=== PATIENT | female | born 1990 | race Caucasian/White ===

== ENCOUNTER 2017-07-06 11:26 | Emergency (ER) | payer OTHER ==
[2017-07-06 11:37] VITALS: TEMP 97.9
[2017-07-06] MEDS ORDERED: SODIUM CHLORIDE 0.9% 1,000 ML IV STA ×2 (12:05)
[2017-07-06 12:48] LABS: Basophils % (A) 1 %; CH 30.2; CHCM 33.3; Eosinophils # (A) 0.1 k/uL (0-0.7); Eosinophils % (A) 2 %; HCT 43.4 % (34.0-46.0); HDW 2.23; HGB 14.1 gm/dL (11.4-16.0); Luc # (Auto) 0.15; Luc % (Auto) 2; Lymphocytes # (A) 1.6 k/uL (1.0-4.8); Lymphocytes % (A) 19 %; MCH 29.6 pg (25.0-35.0); MCHC 32.6 g/dL (31.0-37.0); MCV 90.9 fL (80.0-100.0); Mean Platelet Volume 7.7; Monocytes # (A) 0.6 k/uL (0-1.0); Monocytes % (A) 7 %; Neutrophils # (A) 6.2 k/uL (1.3-7.7); Neutrophils % (A) 71 %; RBC 4.77 m/uL (3.80-5.40); RDW 13.7 % (11.5-15.5); WBC 8.8 k/uL (3.8-10.6); WBC (Perox) 9.17
[2017-07-06 12:54] LABS: Appearance,Urine Clear (Clear); Bacteria,Urine Rare /hpf; Bilirubin,Urine Negative (Negative); Glucose,Urine (UA) Negative (Negative); Ketones,Urine 1+ (Negative); Leukocyte Esterase,Urine Negative (Negative); Mucus,Urine Few /hpf; Nitrite,Urine Negative (Negative); Particle Count 4375; Protein,Urine Trace (Negative); RBC,Urine 5 /hpf (0-5); Specific Gravity,Urine 1.016 (1.001-1.035); Squamous Epithelial Cell,Urine <1 /hpf (0-4); UA Billing (MACRO vs. MICRO) MICRO; Urobilinogen,Urine <2.0 mg/dL (<2.0); WBC,Urine 2 /hpf (0-5)
[2017-07-06 13:03] LABS: ALT 28 U/L (9-52); AST 19 U/L (14-36); Alkaline Phosphatase 59 U/L (38-126); Amylase 48 U/L (30-110); Anion Gap 12 mmol/L; Blood Urea Nitrogen 5 mg/dL (7-17); Calcium 10.3 mg/dL (8.4-10.2); Carbon Dioxide 22 mmol/L (22-30); Chloride 104 mmol/L (98-107); Glucose 96 mg/dL (74-99); Non-African American GFR(MDRD) >60 (>60 ml/min/1.73 sqM); Potassium 4.3 mmol/L (3.5-5.1); Sodium 138 mmol/L (137-145); Total Bilirubin 0.4 mg/dL (0.2-1.3); Total Protein 7.6 g/dL (6.3-8.2)
[2017-07-06 13:04] LABS: Prothrombin Time 9.7 sec (9.0-12.0)
--- NOTE | 2017-07-06 13:12 | XR ---
EXAMINATION TYPE: XR KUB DATE OF EXAM: 07/06/2017 CLINICAL DATA: 26 year-old female with abdominal pain, [facility] COMPARISON: 12/10/2015 FINDINGS: Lung bases are clear. No evidence for free intraperitoneal air. No dilated small bowel or air-fluid levels. Scattered air seen throughout the colon extending distall y into the rectum. Mild stool in the right hemicolon. No suspicious calcifications identified. IMPRESSION: No evidence of bowel obstruction or free intraperitoneal air.
[2017-07-06 13:16] LABS: Partial Thromboplastin Time 20.6 sec (22.0-30.0)
[2017-07-06] MEDS ORDERED: KETOROLAC 30 MG/ML 1 ML VIAL IVP STA (13:24)
[2017-07-06] MEDS ORDERED: ONDANSETRON 4 MG/2 ML VIAL IVP STA (13:24)
[2017-07-06] MEDS ORDERED: HYDROmorphone 1 MG/ML 1 ML SYRINGE IVP STA (13:24)
--- NOTE | 2017-07-06 13:25 | ED ---
Abdominal Pain HPI - General Chief Complaint: Abdominal Pain Stated Complaint: Abdominal pain Time Seen by Provider: 07/06/17 11:52 Source: patient, RN notes reviewed, old records reviewed Mode of arrival: ambulatory Limitations: no limitations - History of Present Illness Initial Comments: This is a 26-year-old female presents emergency Department chief plan a sudden onset of epigastric abdominal pain for approximately one day. Patient reports that she had a couple episodes of nausea and vomiting as well. One episode of diarrhea earlier today. She denies any fever or chills, chest pain or shortness breath. Denies any surgical history. While arriving to ED, she reports pain is somewhat letting up. She denies fever or chills. Denies chance of , or vaginal discharge - Related Data Home Medications Medication Instructions Recorded Confirmed ALPRAZolam [Xanax] 0.25 mg PO BID PRN 07/06/17 07/06/17 Apri 1 tab PO DAILY 07/06/17 07/06/17 buPROPion HCL [Wellbutrin Sr] 300 mg PO DAILY 07/06/17 07/06/17 Previous Rx's Medication Instructions Recorded Acetaminophen-Codeine 300-30mg 1 tab PO Q4H PRN #15 tablet 07/06/17 [Tylenol #3] Ondansetron Odt [Zofran Odt] 4 mg PO Q8HR PRN #12 tab 07/06/17 Allergies Allergy/AdvReac Type Severity Reaction Status Date / Time egg Allergy Unknown Verified 07/06/17 12:02 gluten Allergy Unknown Verified 07/06/17 12:02 levothyroxine sodium Allergy Anaphylaxis Verified 07/06/17 12:02 [From Synthroid] potato Allergy Unknown Verified 07/06/17 12:02 tomato Allergy Unknown Verified 07/06/17 12:02 wheat Allergy Unknown Verified 07/06/17 12:02 yeast, dried Allergy Unknown Verified 07/06/17 12:02 Review of Systems ROS Statement: Those systems with pertinent positive or pertinent negative responses have been documented in the HPI. ROS Other: All systems not noted in ROS Statement are negative. Past Medical History Past Medical History: No Reported History History of Any Multi-Drug Resistant Organisms: None Reported Past Surgical History: Orthopedic Surgery Past Psychological History: No Psychological Hx Reported Smoking Status: Never smoker Past Alcohol Use History: Occasional Past Drug Use History: None Reported General Exam - General Exam Comments Initial Comments: This is a 26 year old female, no distress Limitations: no limitations General appearance: alert, in no apparent distress Head exam: Present: atraumatic, normocephalic, normal inspection Eye exam: Present: normal appearance, PERRL, EOMI. Absent: scleral icterus, conjunctival injection, periorbital swelling ENT exam: Present: normal exam, mucous membranes moist Neck exam: Present: normal inspection. Absent: tenderness, meningismus, lymphadenopathy Respiratory exam: Present: normal lung sounds bilaterally. Absent: respiratory distress, wheezes, rales, rhonchi, stridor Cardiovascular Exam: Present: regular rate, normal rhythm, normal heart sounds. Absent: systolic murmur, diastolic murmur, rubs, gallop, clicks GI/Abdominal exam: Present: soft, tenderness (epigastri cand RUQ tendernes), normal bowel sounds. Absent: distended, guarding, rebound, rigid Extremities exam: Present: normal inspection, full ROM, normal capillary refill. Absent: tenderness, pedal edema, joint swelling, calf tenderness Back exam: Present: normal inspection Neurological exam: Present: alert, oriented X3, CN II-XII intact Psychiatric exam: Present: normal affect, normal mood Skin exam: Present: warm, dry, intact, normal color. Absent: rash Course Vital Signs 07/06/17 07/06/17 07/06/17 11:35 12:38 14:14 Temperature 97.9 F Pulse Rate 94 86 74 Respiratory 20 18 18 Rate Blood Pressure 122/70 127/62 104/65 O2 Sat by Pulse 99 97 98 Oximetry 07/06/17 15:00 Temperature Pulse Rate 73 Respiratory 16 Rate Blood Pressure 116/74 O2 Sat by Pulse 99 Oximetry Medical Decision Making - Medical Decision Making This is a 26 year old female with episode of severe epigastric RUQ pain at home , nausea. She reports it is somewhat subsiding while in ED. Patient given IV fluids, labs obtained. Lab work was reviewed adn normal. Patient underwent US, shows evidence of cholelithiasis. No significant evidence of choledocholithiasis or cholecystitis. Discussed patient likely has biliary colic. Discussed proper diet, and referral to surgeon. Discharged with zofran and pain medication. Patient understands treatment plan and will comply. Return parameters discussed. - Lab Data Result diagrams: 07/06/17 12:34 07/06/17 12:34 Lab Results 07/06/17 07/06/17 07/06/17 Range/Units 12:34 12:34 12:34 WBC 8.8 (3.8-10.6) k/uL RBC 4.77 (3.80-5.40) m/uL Hgb 14.1 (11.4-16.0) gm/dL Hct 43.4 (34.0-46.0) % MCV 90.9 (80.0-100.0) fL MCH 29.6 (25.0-35.0) pg MCHC 32.6 (31.0-37.0) g/dL RDW 13.7 (11.5-15.5) % Plt Count 293 (150-450) k/uL Neutrophils % 71 % Lymphocytes % 19 % Monocytes % 7 % Eosinophils % 2 % Basophils % 1 % Neutrophils # 6.2 (1.3-7.7) k/uL Lymphocytes # 1.6 (1.0-4.8) k/uL Monocytes # 0.6 (0-1.0) k/uL Eosinophils # 0.1 (0-0.7) k/uL Basophils # 0.0 (0-0.2) k/uL PT (9.0-12.0) sec INR (<1.2) APTT (22.0-30.0) sec Sodium 138 (137-145) mmol/L Potassium 4.3 (3.5-5.1) mmol/L Chloride 104 (98-107) mmol/L Carbon Dioxide 22 (22-30) mmol/L Anion Gap 12 mmol/L BUN 5 L (7-17) mg/dL Creatinine 0.61 (0.52-1.04) mg/dL Est GFR (MDRD) Af Amer >60 (>60 ml/min/1.73 sqM) Est GFR (MDRD) Non-Af >60 (>60 ml/min/1.73 sqM) Glucose 96 (74-99) mg/dL Calcium 10.3 H (8.4-10.2) mg/dL Total Bilirubin 0.4 (0.2-1.3) mg/dL AST 19 (14-36) U/L ALT 28 (9-52) U/L Alkaline Phosphatase 59 (38-126) U/L Total Protein 7.6 (6.3-8.2) g/dL Albumin 4.5 (3.5-5.0) g/dL Amylase 48 (30-110) U/L Lipase 49 (23-300) U/L Urine Color Urine Appearance (Clear) Urine pH (5.0-8.0) Ur Specific [place] (1.001-1.035) Urine Protein (Negative) Urine Glucose (UA) (Negative) Urine Ketones (Negative) Urine Blood (Negative) Urine Nitrite (Negative) Urine Bilirubin (Negative) Urine Urobilinogen (<2.0) mg/dL Ur Leukocyte Esterase (Negative) Urine RBC (0-5) /hpf Urine WBC (0-5) /hpf Ur Squamous Epith Cells (0-4) /hpf Urine Bacteria (None) /hpf Urine Mucus (None) /hpf Urine HCG, Qual Not Detected (Not Detectd) 07/06/17 07/06/17 Range/Units 12:34 12:34 WBC (3.8-10.6) k/uL RBC (3.80-5.40) m/uL Hgb (11.4-16.0) gm/dL Hct (34.0-46.0) % MCV (80.0-100.0) fL MCH (25.0-35.0) pg MCHC (31.0-37.0) g/dL RDW (11.5-15.5) % Plt Count (150-450) k/uL Neutrophils % % Lymphocytes % % Monocytes % % Eosinophils % % Basophils % % Neutrophils # (1.3-7.7) k/uL Lymphocytes # (1.0-4.8) k/uL Monocytes # (0-1.0) k/uL Eosinophils # (0-0.7) k/uL Basophils # (0-0.2) k/uL PT 9.7 (9.0-12.0) sec INR 1.0 (<1.2) APTT 20.6 L (22.0-30.0) sec Sodium (137-145) mmol/L Potassium (3.5-5.1) mmol/L Chloride (98-107) mmol/L Carbon Dioxide (22-30) mmol/L Anion Gap mmol/L BUN (7-17) mg/dL Creatinine (0.52-1.04) mg/dL Est GFR (MDRD) Af Amer (>60 ml/min/1.73 sqM) Est GFR (MDRD) Non-Af (>60 ml/min/1.73 sqM) Glucose (74-99) mg/dL Calcium (8.4-10.2) mg/dL Total Bilirubin (0.2-1.3) mg/dL AST (14-36) U/L ALT (9-52) U/L Alkaline Phosphatase (38-126) U/L Total Protein (6.3-8.2) g/dL Albumin (3.5-5.0) g/dL Amylase (30-110) U/L Lipase (23-300) U/L Urine Color Yellow Urine Appearance Clear (Clear) Urine pH 6.0 (5.0-8.0) Ur Specific [place] 1.016 (1.001-1.035) Urine Protein Trace H (Negative) Urine Glucose (UA) Negative (Negative) Urine Ketones 1+ H (Negative) Urine Blood Trace H (Negative) Urine Nitrite Negative (Negative) Urine Bilirubin Negative (Negative) Urine Urobilinogen <2.0 (<2.0) mg/dL Ur Leukocyte Esterase Negative (Negative) Urine RBC 5 (0-5) /hpf Urine WBC 2 (0-5) /hpf Ur Squamous Epith Cells <1 (0-4) /hpf Urine Bacteria Rare H (None) /hpf Urine Mucus Few H (None) /hpf Urine HCG, Qual (Not Detectd) - Radiology Data Radiology results: report reviewed KUB shows non obstructive bowel gas pattern, US shows cholelithiasis, no signs of acute cholecystitis. Disposition Clinical Impression: Biliary colic, Cholelithiasis Disposition: HOME SELF-CARE Condition: Good Instructions: Biliary Colic (ED) Additional Instructions: Patient should follow-up with primary care provider. Return to the emergency department if any alarming signs or symptoms occur. Prescriptions: Acetaminophen-Codeine 300-30mg [Tylenol #3] 1 tab PO Q4H PRN #15 tablet PRN Reason: Pain Ondansetron Odt [Zofran Odt] 4 mg PO Q8HR PRN #12 tab PRN Reason: Nausea Referrals: Stanislaw Vazquez MD [Primary Care Provider] - 1-2 days Evi Reyes DO [Doctor of Osteopathic Medicine] - 1-2 days Vincent Wyatt MD [Medical Doctor] - 1-2 days Time of Disposition: 14:41
--- NOTE | 2017-07-06 14:13 | US ---
EXAMINATION TYPE: US gallbladder DATE OF EXAM: 07/06/2017 COMPARISON: CT 2016 CLINICAL HISTORY: 18-year-old female Pain. Epigastric pain and right upper quadrant pain and nausea x 1 day TECHNIQUE: Multiple sonographic images of the right upper quadrant are obtained. FINDINGS: Liver Length: 16.4 cm Gallbladder Wall: 2.9 mm CBD: 0.3 cm Right Kidney: 10.1 x 4.9 x 5.2 cm Pancreas: obscured by overlying midline bowel gas Liver: Homogeneous echotexture. No focal lesion seen. Gallbladder: No abnormal gallbladder distention or pericholecystic fluid. Multiple echogenic foci see n and the wall measures at the upper limits of normal at 2.9 mm. Probably due to relative under diste ntion. Evidence for sonographic Yuan's sign: no CBD: visualized portions wnl, limited by overlying bowel gas Right Kidney: Mild hydronephrosis. IMPRESSION: 1. Mild right-sided hydronephrosis. There seems to be mention of some hydronephrosis on the CT of 11/16. Possibly chronic in this patient. Clinically correlate. 2. Cholelithiasis. No ancillary findings of acute cholecystitis.
[2017-07-06 15:01] VITALS: BP 116/74; PULSE 73; RESP 16
== END 2017-07-06 15:01 | disposition home or self-care (01) ==
LOC: EC 11:26
DX: K80.70 Calculus of gallbladder and bile duct without cholecystitis without obstruction (principal); Z91.012 Allergy to eggs; Z91.018 Allergy to other foods; Z88.8 Allergy status to other drugs, medicaments and biological substances; Z91.09 Other allergy status, other than to drugs and biological substances; Z79.899 Other long term (current) drug therapy
CPT/HCPCS: 99285; 96374; 96375 ×2; 96361 ×2; 36415; 80053; 82150; 83690; 85025; 85610; 85730; 81001; 81025; 74000; 76705; J2405; J1885; J1170

== ENCOUNTER 2017-07-28 08:00 | Day surgery (SDC) | payer OTHER ==
[2017-07-21 16:30] VITALS: BMI 33.4
[~2017-07-28 08:00] MED LIST: DEXAMETHASONE SOD PHOSPHATE 10 MG/ML 1 ML VIAL IV ONE; HEPARIN SODIUM,PORCINE 5,000 UNIT/ML 1 ML VIAL SQ ONE; HYDROmorphone 0.5 MG/0.5 ML SYRINGE IVP PRN; LACTATED RINGERS 1,000 ML IV SCH; LIDOCAINE 1% 20 ML VIAL (10MG/ML) FOR IV START INTRADERMA PRN; MIDAZOLAM 2 MG/2 ML VIAL IV PRN; ONDANSETRON 4 MG/2 ML VIAL IVP ONE; SCOPOLAMINE 1.5MG/72HR PATCH TRANSDERM ONE; ceFAZolin IN SWFI 2 GM/20 ML SYRINGE IVP ONE
--- NOTE | 2017-07-28 08:39 | P.GSHP ---
History of Present Illness H&P Date: 07/28/17 Chief Complaint: Right upper quadrant pain A 26-year-old female who's had complaints of right quadrant pain. Her recent ultrasounds was evidence of cholelithiasis. She presents today for laparoscopic cholecystectomy Past Medical History Past Medical History: GERD/Reflux, Thyroid Disorder Additional Past Medical History / Comment(s): THYROID NODULES History of Any Multi-Drug Resistant Organisms: None Reported Past Surgical History: Orthopedic Surgery Additional Past Surgical History / Comment(s): LEFT AND RIGHT WRIST SURGERY, WISDOM TEETH EXTRACTION Additional Past Anesthesia/Blood Transfusion Reaction / Comment(s): " STATES WOKE UP DURING SURGERY WITH WRIST SURGERY " Smoking Status: Current every day smoker - Past Family History Mother Family Medical History: Cancer Additional Family Medical History / Comment(s): lymphoma Medications and Allergies Home Medications Medication Instructions Recorded Confirmed Type ALPRAZolam [Xanax] 0.25 mg PO BID PRN 07/06/17 07/28/17 History Acetaminophen-Codeine 300-30mg 1 tab PO Q4H PRN #15 tablet 07/06/17 07/28/17 Rx [Tylenol #3] Ondansetron Odt [Zofran Odt] 4 mg PO Q8HR PRN #12 tab 07/06/17 07/28/17 Rx buPROPion HCL [Wellbutrin Sr] 300 mg PO DAILY 07/06/17 07/28/17 History Apri Control 1 tab PO 2200 07/21/17 07/28/17 History Allergies Allergy/AdvReac Type Severity Reaction Status Date / Time egg Allergy allergy Verified 07/28/17 08:14 test-stomach upset gluten Allergy loose Verified 07/28/17 08:14 stool,allergy test milk Allergy Diarrhea Verified 07/28/17 08:14 naproxen Allergy Rash/Hives Verified 07/28/17 08:14 potato Allergy stomach Verified 07/28/17 08:14 upset,per allergy test tomato Allergy per Verified 07/28/17 08:14 allergy test wheat Allergy ALLERY TEST Verified 07/28/17 08:14 yeast, dried Allergy THROAT Verified 07/28/17 08:14 SWELLING Surgical - Exam Vital Signs Temp Pulse Resp BP Pulse Ox 99 F 90 16 117/61 99 07/28/17 08:24 07/28/17 08:24 07/28/17 08:24 07/28/17 08:24 07/28/17 08:24 - General well developed, no distress - Eyes PERRL - ENT normal pinna - Neck no masses - Respiratory normal expansion - Cardiovascular Rhythm: regular - Abdomen Abdomen: soft, non tender Assessment and Plan Assessment: Lithiasis with chronic cholecystitis. We'll perform laparoscopic cholecystectomy.
[2017-07-28] MEDS ORDERED: GLYCOPYRROLATE 0.2 MG/ML 2 ML VIAL ONE (09:02)
[2017-07-28] MEDS ORDERED: HYDROmorphone (PF) 1 MG/ML ONE (09:02)
[2017-07-28] MEDS ORDERED: MIDAZOLAM 2 MG/2 ML VIAL ONE (09:02)
[2017-07-28] MEDS ORDERED: NEOSTIGMINE 1 MG/ML 10 ML VIAL ONE (09:02)
[2017-07-28] MEDS ORDERED: ROCURONIUM BROMIDE 10 MG/ML 10 ML VIAL IV ONE (09:02)
[2017-07-28] MEDS ORDERED: fentaNYL (PF) 50 MCG/ML 2 ML AMP ONE (09:02)
[2017-07-28] MEDS ORDERED: SUCCINYLCHOLINE CHLORIDE 100 MG/5 ML SYR IV ONE (09:02)
[2017-07-28] MEDS ORDERED: PROPOFOL 10 MG/ML 20 ML VIAL IV ONE (09:02)
[2017-07-28] MEDS ORDERED: SODIUM CHLORIDE 0.9% 50 ML with ceFAZolin 2,000 MG IV ONE ×2 (09:13)
[2017-07-28] MEDS ORDERED: BUPIVACAINE (PF) 0.25% 30 ML VIAL SQ ONE (09:16)
[2017-07-28] MEDS ORDERED: HYDROmorphone 2 MG/ML 1 ML SYRINGE IVP ONE ×4 (10:00→10:21)
--- NOTE | 2017-07-28 10:02 | P.OP ---
Date of Procedure: 07/28/17 Preoperative Diagnosis: Cholelithiasis Postoperative Diagnosis: Cholelithiasis Cholecystitis Procedure(s) Performed: Laparoscopic cholecystectomy Anesthesia: DILAN Surgeon: Tristen Vizcarra Estimated Blood Loss (ml): 5 Pathology: other (Gallbladder) Condition: stable Disposition: PACU Description of Procedure: The patient was placed on the operating table. The patient received a general endotracheal tube anesthesia. The patients abdomen was prepped and draped in the usual sterile fashion. Through an infraumbilical stab incision, the fascia of the anterior abdominal wall was grasped with a pair of Kochers and then the Veress needle was placed in the peritoneal cavity. Position of the Veress needle was confirmed with positive drop test. The abdomen was then insufflated. After adequate insufflation, the 10 mm trocar was placed in the peritoneal cavity. Following this the laparoscope was placed in the peritoneal cavity. The patient was placed in the head-up, right side up position and then a 5 mm trocar was placed in the right lateral and right subcostal position under direct visualization. A 8 mm trocar was placed in the epigastric position. The gallbladder was grasped in the fundus and infundibulum. Traction on the gallbladder was placed in the lateral and the cephalad positions. The triangle of Calot was visualized.. The cystic duct was bluntly dissected until the union of the cystic duct and common bile duct was seen. The cystic duct was then divided and sealed with the Harmonic scissors. A PDS Endoloop was then placed throughout the cystic duct stump. The cystic artery divided and sealed with the Harmonic scissors. The gallbladder was then removed from the liver bed using Harmonic scissors. The gallbladder was then extracted through the epigastric port site. Operative field was checked for any bleeding spots and Harmonic scissors was used to coagulate the liver bed. The abdomen was irrigated. The trocars were removed. The skin was closed using interrupted 3-0 Vicryl suture. Dermabond dressing were applied. The patient tolerated the procedure well.
[2017-07-28 10:06] VITALS: TEMP 97.1
[2017-07-28] MEDS ORDERED: MIDAZOLAM 2 MG/2 ML VIAL IVP ONE ×2 (10:07→10:14)
[2017-07-28] MEDS ORDERED: LACTATED RINGERS 1,000 ML IV ONE (10:47)
[2017-07-28] MEDS ORDERED: HYDROcodone/APAP 7.5-325MG 1 EACH TAB PO ONE (11:14)
[2017-07-28 11:50] VITALS: BP 103/72; PULSE 89; RESP 14
== END 2017-07-28 11:58 | disposition home or self-care (01) ==
LOC: OR 08:00
PROVIDERS: ATTEND Surgery
DX: K80.10 Calculus of gallbladder with chronic cholecystitis without obstruction (principal); E07.9 Disorder of thyroid, unspecified; K21.9 Gastro-esophageal reflux disease without esophagitis; F17.200 Nicotine dependence, unspecified, uncomplicated; Z79.3 Long term (current) use of hormonal contraceptives; Z79.899 Other long term (current) drug therapy; Z91.012 Allergy to eggs; Z91.02 Food additives allergy status; Z91.011 Allergy to milk products; Z88.8 Allergy status to other drugs, medicaments and biological substances; Z91.018 Allergy to other foods
CPT/HCPCS: 81025; 88304; 47562; J2250; J1170 ×2; J1644; J1100; J2710; J2405; J3010; J0690; J0330; J2704

== ENCOUNTER → 2017-08-11 | Outpatient (CLI) | payer OTHER ==
[2017-08-11 17:45] LABS: ALT 27 U/L (9-52); AST 22 U/L (14-36); Albumin 4.6 g/dL (3.5-5.0); Alkaline Phosphatase 55 U/L (38-126); Anion Gap 14 mmol/L; Blood Urea Nitrogen 5 mg/dL (7-17); Calcium 10.2 mg/dL (8.4-10.2); Carbon Dioxide 23 mmol/L (22-30); Chloride 106 mmol/L (98-107); Glucose 89 mg/dL (74-99); Potassium 4.4 mmol/L (3.5-5.1); Sodium 143 mmol/L (137-145); Total Bilirubin 0.4 mg/dL (0.2-1.3); Total Protein 7.7 g/dL (6.3-8.2)
== END | disposition home or self-care (01) ==
LOC: LABWHC1 16:38
PROVIDERS: ATTEND Surgery
DX: R10.11 Right upper quadrant pain (principal)
CPT/HCPCS: 36415; 80053

== ENCOUNTER 2017-08-15 10:00 | Day surgery (SDC) | payer OTHER ==
[2017-08-15 10:22] VITALS: RESP 16; TEMP 97.9
[2017-08-15] MEDS ORDERED: LACTATED RINGERS 1,000 ML IV ONE (10:22)
[2017-08-15] MEDS ORDERED: LIDOCAINE 1% 20 ML VIAL (10MG/ML) FOR IV START INTRADERMA ONE (10:22)
[2017-08-15] MEDS ORDERED: PROPOFOL 10 MG/ML 20 ML VIAL IV ONE (10:50)
--- NOTE | 2017-08-15 10:54 | P.GSHP ---
History of Present Illness H&P Date: 08/15/17 Chief Complaint: Epigastric pain, nausea This a 26-year-old female who underwent laparoscopic cholecystectomy approximately 10 days ago. The patient had a hospital admission due to abdominal pain. Patient states she had right quadrant pain is rated her back. Patient was admitted to the hospital over the weekend. She had some mild elevation in her LFTs. Using returned to normal. She states her pain is improved. She presents today for EGD to evaluate possible gastritis. Past Medical History Past Medical History: GERD/Reflux, Thyroid Disorder Additional Past Medical History / Comment(s): THYROID NODULES,uti gallstone History of Any Multi-Drug Resistant Organisms: None Reported Past Surgical History: Cholecystectomy, Orthopedic Surgery Additional Past Surgical History / Comment(s): LEFT AND RIGHT WRIST SURGERY, WISDOM TEETH EXTRACTION Additional Past Anesthesia/Blood Transfusion Reaction / Comment(s): " STATES WOKE UP DURING SURGERY WITH WRIST SURGERY " Smoking Status: Current some day smoker - Past Family History Mother Family Medical History: Cancer Additional Family Medical History / Comment(s): lymphoma Father Family Medical History: Hypertension Medications and Allergies Home Medications Medication Instructions Recorded Confirmed Type ALPRAZolam [Xanax] 0.25 mg PO BID PRN 07/06/17 08/15/17 History buPROPion HCL [Wellbutrin SR] 300 mg PO DAILY 07/06/17 08/15/17 History Apri Control 1 tab PO DAILY 07/21/17 08/15/17 History HYDROcodone/APAP 7.5-325MG [[place] 1 tab PO Q4H PRN 08/12/17 08/15/17 History 7.5-325] Pantoprazole [Protonix] 40 mg PO AC-BID #60 tablet. 08/14/17 08/15/17 Rx Allergies Allergy/AdvReac Type Severity Reaction Status Date / Time egg Allergy allergy Verified 08/15/17 10:08 test-stomach upset gluten Allergy loose Verified 08/15/17 10:08 stool,allergy test milk Allergy Diarrhea Verified 08/15/17 10:08 naproxen Allergy Rash/Hives Verified 08/15/17 10:08 potato Allergy stomach Verified 08/15/17 10:08 upset,per allergy test tomato Allergy per Verified 08/15/17 10:08 allergy test wheat Allergy ALLERY TEST Verified 08/15/17 10:08 yeast, dried Allergy THROAT Verified 08/15/17 10:08 SWELLING Surgical - Exam Vital Signs Temp Pulse Resp BP Pulse Ox 97.9 F 98 16 127/83 98 08/15/17 10:20 08/15/17 10:20 08/15/17 10:20 08/15/17 10:20 08/15/17 10:20 - General well developed, no distress - Eyes PERRL - ENT normal pinna - Neck no masses - Respiratory normal expansion - Cardiovascular Rhythm: regular - Abdomen Abdomen: soft, non tender Assessment and Plan Assessment: Epigastric pain. We'll perform EGD tonight for gastritis.
--- NOTE | 2017-08-15 11:06 | P.OP ---
Date of Procedure: 08/15/17 Preoperative Diagnosis: Epigastric pain Postoperative Diagnosis: Mild antral gastritis Small hiatal hernia Mild esophagitis Procedure(s) Performed: EGD Anesthesia: MAC Surgeon: Tristen Vizcarra Pathology: other (Antrum, esophagus) Condition: stable Disposition: PACU Description of Procedure: The patient's placed on the endoscopy table in the lateral position. She received IV sedation. The gastroscope placed oropharynx passed in the esophagus into the stomach. Scope was then placed through the pylorus. The first and second portion of the duodenum appeared normal. Scope was then brought back the antrum and this was mildly inflamed. A biopsies performed. Scope was retroflexed and remainder stomach appeared normal. The patient had a small hiatal hernia. The GE junction was at 38 7 is. The distal esophagus was mildly inflamed a biopsy performed. The proximal esophagus appeared normal. Scope was withdrawn for patient.
[2017-08-15 11:38] VITALS: BP 119/64; PULSE 85
== END 2017-08-15 12:12 | disposition home or self-care (01) ==
LOC: ORWHC2ENDO 10:00
PROVIDERS: ATTEND Surgery
DX: K29.50 Unspecified chronic gastritis without bleeding (principal); K21.0 Gastro-esophageal reflux disease with esophagitis; K44.9 Diaphragmatic hernia without obstruction or gangrene; F17.210 Nicotine dependence, cigarettes, uncomplicated; Z91.012 Allergy to eggs; Z91.011 Allergy to milk products; Z91.018 Allergy to other foods; Z88.6 Allergy status to analgesic agent; Z79.3 Long term (current) use of hormonal contraceptives; Z79.899 Other long term (current) drug therapy; Z90.49 Acquired absence of other specified parts of digestive tract; Z82.49 Family history of ischemic heart disease and other diseases of the circulatory system
CPT/HCPCS: 43239; 81025; 88305; 88342; J2704

== ENCOUNTER → 2017-09-16 | Outpatient (CLI) | payer OTHER ==
--- NOTE | 2017-09-16 12:35 | US ---
EXAMINATION TYPE: US abdomen complete DATE OF EXAM: 09/16/2017 COMPARISON: CT, US 08/12/2017 CLINICAL HISTORY: R10.9 abdominal pain; patient stated had umbilical skin redness when bearing down t o void; post laparoscopy cholecystectomy 07/28/2017; patient denies abdominal pain EXAM MEASUREMENTS: Liver Length: 16.0 Gallbladder Wall: surgically removed per patient HX CBD: 0.2m Spleen: 10.6cm Right Kidney: 10.7 x 5.5 x 4.5cm Left Kidney: 11.2 x 4.7 x 6.1cm Pancreas: mid and tail obscured by bowel gas Liver: wnl Gallbladder: hyperechoic oval area with internal hypoechoic area is noted on images #[id number] through # [id number] at level of gallbladder and was seen in prior US and CT Evidence for sonographic Yuan's sign: No CBD: wnl Spleen: wnl Right Kidney: No hydronephrosis or masses seen Left Kidney: No hydronephrosis or masses seen Upper IVC: wnl Abd Aorta: wnl IMPRESSION: 1. Nonvisualization of the gallbladder. Echogenic area within the gallbladder bed fossa is again evid ent. No significant change is evident.
== END | disposition home or self-care (01) ==
LOC: RADUSWWP 08:54
PROVIDERS: ATTEND Internal Medicine
DX: R10.9 Unspecified abdominal pain (principal)
CPT/HCPCS: 76700

== ENCOUNTER 2017-12-28 23:04 | Emergency (ER) | payer OTHER ==
[2017-12-28] MEDS ORDERED: PROCHLORPERAZINE 5 MG TAB PO STA (23:43)
[2017-12-28] MEDS ORDERED: HYDROcodone/APAP 5-325MG 1 EACH TAB PO STA (23:43)
--- NOTE | 2017-12-28 23:52 | ED ---
General Adult HPI - General Chief complaint: Head Injury Stated complaint: Head injury Time Seen by Provider: 12/28/17 23:35 Source: patient, RN notes reviewed, old records reviewed Mode of arrival: ambulatory Limitations: no limitations - History of Present Illness Initial comments: This is a 27-year-old female the ER today for evaluation. This patient's today for evaluation regarding headache. Severe headache with nausea. Patient has no prior medical history of significant headaches. She does admit to trauma, she states she was doing the dishes anaplastic cutting tray fell on her head. She had no loss of consciousness, is complaining of headache. Nausea. Pain despite taking anti-inflammatories and [id number] Tylenol. - Related Data Home Medications Medication Instructions Recorded Confirmed ALPRAZolam [Xanax] 0.25 mg PO BID PRN 07/06/17 12/28/17 buPROPion HCL [Wellbutrin SR] 300 mg PO DAILY 07/06/17 12/28/17 Apri Control 1 tab PO DAILY 07/21/17 12/28/17 Previous Rx's Medication Instructions Recorded Pantoprazole [Protonix] 40 mg PO AC-BID #60 tablet. 08/14/17 Allergies Allergy/AdvReac Type Severity Reaction Status Date / Time egg Allergy allergy Verified 08/15/17 10:08 test-stomach upset gluten Allergy loose Verified 08/15/17 10:08 stool,allergy test milk Allergy Diarrhea Verified 08/15/17 10:08 naproxen Allergy Rash/Hives Verified 08/15/17 10:08 potato Allergy stomach Verified 08/15/17 10:08 upset,per allergy test tomato Allergy per Verified 08/15/17 10:08 allergy test wheat Allergy ALLERY TEST Verified 08/15/17 10:08 yeast, dried Allergy THROAT Verified 08/15/17 10:08 SWELLING Review of Systems ROS Statement: Those systems with pertinent positive or pertinent negative responses have been documented in the HPI. ROS Other: All systems not noted in ROS Statement are negative. Past Medical History Past Medical History: GERD/Reflux, Thyroid Disorder Additional Past Medical History / Comment(s): THYROID NODULES,uti gallstone History of Any Multi-Drug Resistant Organisms: None Reported Past Surgical History: Cholecystectomy, Orthopedic Surgery Additional Past Surgical History / Comment(s): LEFT AND RIGHT WRIST SURGERY, WISDOM TEETH EXTRACTION Additional Past Anesthesia/Blood Transfusion Reaction / Comment(s): " STATES WOKE UP DURING SURGERY WITH WRIST SURGERY " Past Psychological History: Anxiety, Depression Smoking Status: Current some day smoker Past Alcohol Use History: Rare Past Drug Use History: Marijuana - Past Family History Mother Family Medical History: Cancer Additional Family Medical History / Comment(s): lymphoma Father Family Medical History: Hypertension General Exam Limitations: no limitations General appearance: alert, in no apparent distress Head exam: Present: atraumatic, normocephalic, normal inspection Eye exam: Present: normal appearance, PERRL, EOMI. Absent: scleral icterus, conjunctival injection, periorbital swelling ENT exam: Present: normal exam, mucous membranes moist Neck exam: Present: normal inspection. Absent: tenderness, meningismus, lymphadenopathy Respiratory exam: Present: normal lung sounds bilaterally. Absent: respiratory distress, wheezes, rales, rhonchi, stridor Cardiovascular Exam: Present: regular rate, normal rhythm, normal heart sounds. Absent: systolic murmur, diastolic murmur, rubs, gallop, clicks GI/Abdominal exam: Present: soft, normal bowel sounds. Absent: distended, tenderness, guarding, rebound, rigid Extremities exam: Present: normal inspection, full ROM, normal capillary refill. Absent: tenderness, pedal edema, joint swelling, calf tenderness Back exam: Present: normal inspection Neurological exam: Present: alert, oriented X3, CN II-XII intact Psychiatric exam: Present: normal affect, normal mood Skin exam: Present: warm, dry, intact, normal color. Absent: rash Course Vital Signs 12/28/17 23:15 Temperature 98.3 F Pulse Rate 86 Respiratory 18 Rate Blood Pressure 128/83 O2 Sat by Pulse 99 Oximetry - Reevaluation(s) Reevaluation #1: 12/28/17 23:51 Patient improved his symptoms and pain control Medical Decision Making - Medical Decision Making 27 female the ER concussion, closed head injury, CT negative symptoms are controlled currently, will follow-up with primary care, again Motrin Tylenol for pain - Radiology Data Radiology results: report reviewed (CT brain negative for acute disease), image reviewed Disposition Clinical Impression: Concussion without loss of consciousness, Closed head injury Disposition: HOME SELF-CARE Condition: Good Instructions: Concussion (ED) Is patient prescribed a controlled substance at d/c from ED?: No Referrals: Stanislaw Vazquez MD [Primary Care Provider] - 1-2 days
--- NOTE | 2017-12-29 00:16 | CT ---
EXAMINATION TYPE: CT brain wo con DATE OF EXAM: 12/29/2017 COMPARISON: NONE HISTORY: No prior, [place] with nausea and vomiting after large cutting board fell on her head CT DLP: 1207.00 mGycm. Automated Exposure Control for Dose Reduction was Utilized. TECHNIQUE: CT scan of the head is performed without contrast. FINDINGS: Ventricles and sulci appear normal. There is no mass effect or midline shift. There is no sign of intracranial hemorrhage. The calvarium is intact. Impression normal head CT scan.
[2017-12-29 00:50] VITALS: BP 125/67; PULSE 77; RESP 16; TEMP 98.2
== END 2017-12-29 00:27 | disposition home or self-care (01) ==
LOC: EC 23:04
DX: S06.0X0A Concussion without loss of consciousness, initial encounter (principal); F32.9 Major depressive disorder, single episode, unspecified; F41.9 Anxiety disorder, unspecified; F17.200 Nicotine dependence, unspecified, uncomplicated; Z79.3 Long term (current) use of hormonal contraceptives; Z79.899 Other long term (current) drug therapy; Z91.012 Allergy to eggs; Z91.011 Allergy to milk products; Z91.018 Allergy to other foods; Z88.6 Allergy status to analgesic agent; Z91.048 Other nonmedicinal substance allergy status; W20.8XXA Other cause of strike by thrown, projected or falling object, initial encounter
CPT/HCPCS: 70450; 99284; S0183

== ENCOUNTER → 2018-06-23 | Outpatient (CLI) | payer OTHER ==
--- NOTE | 2018-06-23 14:55 | XR ---
EXAMINATION TYPE: XR chest 2V DATE OF EXAM: 06/23/2018 COMPARISON: None INDICATION: Cough TECHNIQUE: Frontal and lateral views of the chest are obtained. FINDINGS: The heart size is normal. The pulmonary vasculature is normal. The lungs are clear. IMPRESSION: 1. No acute pulmonary process.
--- NOTE | 2018-06-23 15:39 | US ---
EXAMINATION TYPE: US thyroid st tissue head/neck DATE OF EXAM: 06/23/2018 COMPARISON: US 07/23/2013 CLINICAL HISTORY: E04.9 GOITER. GLAND SIZE: Right Lobe: 6.2 x 1.8 x 2.1 cm Overall Parenchyma: heterogenous Left Lobe: 7.0 x 2.3 x 2.4 cm Overall Parenchyma: heterogeneous Isthmus Thickness: 0.5 cm NODULES RIGHT: # of nodules measured on right: 0 LEFT: # of nodules measured on left: 0 ISTHMUS: # of nodules measured in the isthmus: 0 Bilateral enlarged, heterogeneous, and hypervascular thyroid glands. Bilateral neck scanned, no evide nce of lymphadenopathy. IMPRESSION: Diffusely heterogenous enlarged hypervascular thyroid suggestive of thyroiditis. Numerous pseudocysts infiltrate the parenchyma also indicative of lymphocytic infiltration/thyroiditis.
== END | disposition home or self-care (01) ==
LOC: RADUSWWP 10:36
PROVIDERS: ATTEND Internal Medicine
DX: E04.9 Nontoxic goiter, unspecified (principal); R05 Cough
CPT/HCPCS: 71046; 76536

== ENCOUNTER → 2018-07-19 | Outpatient (CLI) | payer OTHER ==
--- NOTE | 2018-07-20 09:13 | NM ---
EXAMINATION TYPE: NM thyroid image w uptake DATE OF EXAM: 07/20/2018 COMPARISON: NONE HISTORY: Thyroiditis TECHNIQUE: Thyroid iodine uptake is calculated and images performed after the oral administration of 317 uCi 1-123 Capsule. FINDINGS: Thyroid lobes are slightly heterogenous. No evidence for hot or cold nodule at this time. T he 4 hour iodine uptake is calculated at 24% (normal range 8-14%). The 24-hour iodine uptake is calcu lated at 51.8% (normal range 15-35%). IMPRESSION: Elevated 4 and 24-hour uptake indicating hypertrapping state.
== END | disposition home or self-care (01) ==
LOC: RADNMMAIN 08:44
PROVIDERS: ATTEND Internal Medicine
DX: R94.6 Abnormal results of thyroid function studies (principal)
CPT/HCPCS: 78014; A9516

== ENCOUNTER 2019-04-12 11:44 | Emergency (ER) | payer OTHER ==
[2019-04-12 12:04] VITALS: TEMP 98.7
[2019-04-12] MEDS ORDERED: SODIUM CHLORIDE 0.9% 1,000 ML IV STA (12:19)
[2019-04-12] MEDS ORDERED: KETOROLAC 30 MG/ML 1 ML VIAL IVP STA (12:51)
[2019-04-12] MEDS ORDERED: ONDANSETRON 4 MG/2 ML VIAL IVP STA (12:51)
[2019-04-12] MEDS ORDERED: MORPHINE SULFATE 4 MG/ML SYRINGE IVP STA (12:52)
[2019-04-12] MEDS ORDERED: PANTOPRAZOLE 40 MG/10 ML VIAL IVP STA (12:52)
--- NOTE | 2019-04-12 13:12 | ED ---
General Adult HPI - General Chief complaint: Nausea/Vomiting/Diarrhea Stated complaint: Vomiting, abd pain Time Seen by Provider: 04/12/19 12:19 Source: patient, family, RN notes reviewed, old records reviewed Mode of arrival: ambulatory Limitations: no limitations - History of Present Illness Initial comments: Patient is a 28-year-old female presents emergency room today with chief complaint epigastric abdominal pain nausea vomiting and some diarrhea for the past day. She was seen at [facility] and sent here for further evaluation. Patient states she's had history of cholecystectomy. She states she's passive gallstones between when she had her gallbladder removed. Patient states that she's had no bloody stools. - Related Data Home Medications Medication Instructions Recorded Confirmed Apri Control 1 tab PO HS 07/21/17 04/12/19 ALPRAZolam [Xanax] 0.5 mg PO HS 04/12/19 04/12/19 Levothyroxine Sodium [Synthroid] 75 mcg PO HS 04/12/19 04/12/19 buPROPion XL [Wellbutrin Xl] 300 mg PO HS 04/12/19 04/12/19 Previous Rx's Medication Instructions Recorded Amoxic-Pot Clav 875-125Mg 1 tab PO Q12HR #20 tablet 04/12/19 [Augmentin 875-125] Dicyclomine [Bentyl] 10 mg PO TID #9 capsule 04/12/19 Allergies Allergy/AdvReac Type Severity Reaction Status Date / Time naproxen Allergy Rash/Hives Verified 04/12/19 12:15 yeast, dried Allergy THROAT Verified 04/12/19 12:15 SWELLING egg AdvReac allergy Verified 04/12/19 12:15 test-stomach upset gluten AdvReac loose Verified 04/12/19 12:15 stool,allergy test milk AdvReac Diarrhea Verified 04/12/19 12:15 potato AdvReac stomach Verified 04/12/19 12:15 upset,per allergy test tomato AdvReac per Verified 04/12/19 12:15 allergy test wheat AdvReac ALLERY TEST Verified 04/12/19 12:15 Review of Systems ROS Statement: Those systems with pertinent positive or pertinent negative responses have been documented in the HPI. ROS Other: All systems not noted in ROS Statement are negative. Past Medical History Past Medical History: GERD/Reflux, Thyroid Disorder Additional Past Medical History / Comment(s): THYROID NODULES,uti gallstone History of Any Multi-Drug Resistant Organisms: None Reported Past Surgical History: Cholecystectomy, Orthopedic Surgery Additional Past Surgical History / Comment(s): LEFT AND RIGHT WRIST SURGERY, WISDOM TEETH EXTRACTION Additional Past Anesthesia/Blood Transfusion Reaction / Comment(s): " STATES WOKE UP DURING SURGERY WITH WRIST SURGERY " Past Psychological History: Anxiety, Depression Smoking Status: Current some day smoker Past Alcohol Use History: Rare Past Drug Use History: Marijuana - Past Family History Mother Family Medical History: Cancer Additional Family Medical History / Comment(s): lymphoma Father Family Medical History: Hypertension General Exam - General Exam Comments Initial Comments: 28-year-old female. Limitations: no limitations General appearance: alert, in no apparent distress Head exam: Present: atraumatic, normocephalic, normal inspection Eye exam: Present: normal appearance, PERRL, EOMI. Absent: scleral icterus, co njunctival injection, periorbital swelling ENT exam: Present: normal exam, mucous membranes moist Neck exam: Present: normal inspection. Absent: tenderness, meningismus, lymphadenopathy Respiratory exam: Present: normal lung sounds bilaterally. Absent: respiratory distress, wheezes, rales, rhonchi, stridor GI/Abdominal exam: Present: soft, tenderness (lower abdominal tedneres), normal bowel sounds. Absent: distended, guarding, rebound, rigid Course Vital Signs 04/12/19 04/12/19 12:02 16:41 Temperature 98.7 F Pulse Rate 61 67 Respiratory 17 18 Rate Blood Pressure 133/88 125/78 O2 Sat by Pulse 99 100 Oximetry Medical Decision Making - Medical Decision Making Residual female presents stating for nausea vomiting diarrhea after 2 days. Patient has diffuse lower abdominal pain. History of cholecystectomy and multiple Occasions since then. Patient at this time was given a fluid 17. Urinalysis positive for dehydration. Multiple ketones noted. Lab work was otherwise unremarkable. Due to continued pain tenderness CT on pelvis was completed. This shows evidence of small cyst on the nature. Uterus and evidence of colitis. Discussed with the Patient a short course of Augmentin for colitis. Discussed that she can follow-up with her primary care doctor. All questions were answered return parameters were discussed. - Lab Data Result diagrams: 04/12/19 13:11 04/12/19 13:11 Lab Results 04/12/19 04/12/19 04/12/19 Range/Units 13:05 13:05 13:11 WBC 10.0 (3.8-10.6) k/uL RBC 4.65 (3.80-5.40) m/uL Hgb 14.2 (11.4-16.0) gm/dL Hct 40.3 (34.0-46.0) % MCV 86.7 (80.0-100.0) fL MCH 30.6 (25.0-35.0) pg MCHC 35.3 (31.0-37.0) g/dL RDW 12.3 (11.5-15.5) % Plt Count 293 (150-450) k/uL Neutrophils % 88 % Lymphocytes % 5 % Monocytes % 5 % Eosinophils % 0 % Basophils % 1 % Neutrophils # 8.8 H (1.3-7.7) k/uL Lymphocytes # 0.5 L (1.0-4.8) k/uL Monocytes # 0.5 (0-1.0) k/uL Eosinophils # 0.0 (0-0.7) k/uL Basophils # 0.1 (0-0.2) k/uL Sodium (137-145) mmol/L Potassium (3.5-5.1) mmol/L Chloride (98-107) mmol/L Carbon Dioxide (22-30) mmol/L Anion Gap mmol/L BUN (7-17) mg/dL Creatinine (0.52-1.04) mg/dL Est GFR (CKD-EPI)AfAm (>60 ml/min/1.73 sqM) Est GFR (CKD-EPI)NonAf (>60 ml/min/1.73 sqM) Glucose (74-99) mg/dL Calcium (8.4-10.2) mg/dL Total Bilirubin (0.2-1.3) mg/dL AST (14-36) U/L ALT (9-52) U/L Alkaline Phosphatase (38-126) U/L Total Protein (6.3-8.2) g/dL Albumin (3.5-5.0) g/dL Amylase (30-110) U/L Lipase (23-300) U/L Urine Color Yellow Urine Appearance Cloudy H (Clear) Urine pH 6.5 (5.0-8.0) Ur Specific [place] 1.037 H (1.001-1.035) Urine Protein 2+ H (Negative) Urine Glucose (UA) Negative (Negative) Urine Ketones 4+ H (Negative) Urine Blood Trace H (Negative) Urine Nitrite Negative (Negative) Urine Bilirubin 1+ H (Negative) Urine Urobilinogen 6.0 (<2.0) mg/dL Ur Leukocyte Esterase Small H (Negative) Urine RBC 7 H (0-5) /hpf Urine WBC 8 H (0-5) /hpf Ur Squamous Epith Cells 10 H (0-4) /hpf Urine Bacteria Few H (None) /hpf Urine Mucus Moderate H (None) /hpf Urine HCG, Qual Not Detected (Not Detectd) 04/12/19 Range/Units 13:11 WBC (3.8-10.6) k/uL RBC (3.80-5.40) m/uL Hgb (11.4-16.0) gm/dL Hct (34.0-46.0) % MCV (80.0-100.0) fL MCH (25.0-35.0) pg MCHC (31.0-37.0) g/dL RDW (11.5-15.5) % Plt Count (150-450) k/uL Neutrophils % % Lymphocytes % % Monocytes % % Eosinophils % % Basophils % % Neutrophils # (1.3-7.7) k/uL Lymphocytes # (1.0-4.8) k/uL Monocytes # (0-1.0) k/uL Eosinophils # (0-0.7) k/uL Basophils # (0-0.2) k/uL Sodium 138 (137-145) mmol/L Potassium 4.0 (3.5-5.1) mmol/L Chloride 104 (98-107) mmol/L Carbon Dioxide 21 L (22-30) mmol/L Anion Gap 13 mmol/L BUN 7 (7-17) mg/dL Creatinine 0.70 (0.52-1.04) mg/dL Est GFR (CKD-EPI)AfAm >90 (>60 ml/min/1.73 sqM) Est GFR (CKD-EPI)NonAf >90 (>60 ml/min/1.73 sqM) Glucose 180 H (74-99) mg/dL Calcium 9.7 (8.4-10.2) mg/dL Total Bilirubin 0.8 (0.2-1.3) mg/dL AST 16 (14-36) U/L ALT 24 (9-52) U/L Alkaline Phosphatase 65 (38-126) U/L Total Protein 8.0 (6.3-8.2) g/dL Albumin 4.8 (3.5-5.0) g/dL Amylase <30 L (30-110) U/L Lipase 18 L (23-300) U/L Urine Color Urine Appearance (Clear) Urine pH (5.0-8.0) Ur Specific [place] (1.001-1.035) Urine Protein (Negative) Urine Glucose (UA) (Negative) Urine Ketones (Negative) Urine Blood (Negative) Urine Nitrite (Negative) Urine Bilirubin (Negative) Urine Urobilinogen (<2.0) mg/dL Ur Leukocyte Esterase (Negative) Urine RBC (0-5) /hpf Urine WBC (0-5) /hpf Ur Squamous Epith Cells (0-4) /hpf Urine Bacteria (None) /hpf Urine Mucus (None) /hpf Urine HCG, Qual (Not Detectd) Disposition Clinical Impression: Dehydration, Colitis, Ovarian cyst Disposition: HOME SELF-CARE Condition: Good Instructions (If sedation given, give patient instructions): Colitis (ED) Additional Instructions: Please use medication as discussed. Please follow up with family doctor if symptoms have not improved over the next two days. Please return to the emergency room if your symptoms increase or worsen or for any other concerns. Prescriptions: Amoxic-Pot Clav 875-125Mg [Augmentin 875-125] 1 tab PO Q12HR #20 tablet Dicyclomine [Bentyl] 10 mg PO TID #9 capsule Is patient prescribed a controlled substance at d/c from ED?: No Referrals: Stanislaw Vazquez MD [Primary Care Provider] - 1-2 days Liz Peacock MD [STAFF PHYSICIAN] - 1-2 days Time of Disposition: 16:12
[2019-04-12 13:41] LABS: Appearance,Urine Cloudy (Clear); Bacteria,Urine Few /hpf; Bilirubin,Urine 1+ (Negative); Blood,Urine Trace (Negative); Color,Urine Yellow; Glucose,Urine (UA) Negative (Negative); Ketones,Urine 4+ (Negative); Leukocyte Esterase,Urine Small (Negative); Mucus,Urine Moderate /hpf; Nitrite,Urine Negative (Negative); PH, Urine 6.5 (5.0-8.0); Protein,Urine 2+ (Negative); RBC,Urine 7 /hpf (0-5); Specific Gravity,Urine 1.037 (1.001-1.035); Squamous Epithelial Cell,Urine 10 /hpf (0-4); WBC,Urine 8 /hpf (0-5)
[2019-04-12 13:41] LABS: Basophils # (A) 0.1 k/uL (0-0.2); Basophils % (A) 1 %; Eosinophils % (A) 0 %; HCT 40.3 % (34.0-46.0); HGB 14.2 gm/dL (11.4-16.0); Lymphocytes # (A) 0.5 k/uL (1.0-4.8); Lymphocytes % (A) 5 %; MCH 30.6 pg (25.0-35.0); MCHC 35.3 g/dL (31.0-37.0); MCV 86.7 fL (80.0-100.0); Mean Platelet Volume 6.6; Monocytes # (A) 0.5 k/uL (0-1.0); Monocytes % (A) 5 %; Neutrophils # (A) 8.8 k/uL (1.3-7.7); Neutrophils % (A) 88 %; Platelet Count 293 k/uL (150-450); RBC 4.65 m/uL (3.80-5.40); RDW 12.3 % (11.5-15.5)
[2019-04-12] MEDS ORDERED: SODIUM CHLORIDE 0.9% 1,000 ML IV ONE (13:46)
[2019-04-12] MEDS ORDERED: HYDROmorphone 1 MG/ML 1 ML SYRINGE IVP STA (13:48)
[2019-04-12 13:52] LABS: ALT 24 U/L (9-52); AST 16 U/L (14-36); African American GFR (CKD) >90 (>60 ml/min/1.73 sqM); Albumin 4.8 g/dL (3.5-5.0); Alkaline Phosphatase 65 U/L (38-126); Amylase <30 U/L (30-110); Anion Gap 13 mmol/L; Blood Urea Nitrogen 7 mg/dL (7-17); Calcium 9.7 mg/dL (8.4-10.2); Carbon Dioxide 21 mmol/L (22-30); Chloride 104 mmol/L (98-107); Glucose 180 mg/dL (74-99); Sodium 138 mmol/L (137-145); Total Bilirubin 0.8 mg/dL (0.2-1.3)
--- NOTE | 2019-04-12 15:40 | CT ---
EXAMINATION TYPE: CT abdomen pelvis w con DATE OF EXAM: 04/12/2019 COMPARISON: 08/12/2017 INDICATION: Abdominal pain with nausea and vomiting. DLP: 998.5 mGycm, Automated exposure control for dose reduction was used. CONTRAST: 100 mL of Isovue 300. Study performed without Oral Contrast TECHNIQUE: Axial images were obtained from above the diaphragm to the pubic rami in the axial plane a t 5 mm thick sections. Reconstructed images are reviewed on the computer in the coronal plane. FINDINGS: Limited CT sections are obtained the lung bases. The lung bases are clear. CT ABDOMEN: Liver: Normal Spleen: Normal Pancreas: Normal Adrenal glands: The adrenal glands are normal. Gallbladder: Identified Kidneys: No masses are evident. No hydronephrosis is present. No cysts are present. Delayed images were obtained through the kidneys, which remain unremarkable. Aorta: Normal Inferior vena cava: Normal. CT PELVIS: Loops of bowel within the abdomen and pelvis are normal. Study is lateral contrast limiting bowel evaluation. Some wall thickening within the rectosigmoid region may be present. Correlate for coliti s. Appendix: Normal as visualized. Urinary bladder: Normal. Genitourinary structures: Uterus is in the left hemipelvis. Right adnexal region is clear. Uterus may be retroverted. A 2.2 cm cyst in the left ovary is likely present. Osseous structures: No suspicious lytic or sclerotic lesions. IMPRESSIONS: 1. 2.2 cm transverse dimension left ovarian cyst. 2. Retroverted left hemipelvis uterus. 3. Wall thickening within the distal rectosigmoid junction region. Correlate for colitis.
[2019-04-12 16:42] VITALS: BP 125/78; PULSE 67; RESP 18
== END 2019-04-12 16:42 | disposition home or self-care (01) ==
LOC: EC 11:44
DX: N83.202 Unspecified ovarian cyst, left side (principal); K52.9 Noninfective gastroenteritis and colitis, unspecified; E86.0 Dehydration; Z32.02 Encounter for pregnancy test, result negative; Z90.49 Acquired absence of other specified parts of digestive tract; F41.9 Anxiety disorder, unspecified; E07.9 Disorder of thyroid, unspecified; F32.9 Major depressive disorder, single episode, unspecified; F17.200 Nicotine dependence, unspecified, uncomplicated; Z79.890 Hormone replacement therapy; Z79.899 Other long term (current) drug therapy; Z79.3 Long term (current) use of hormonal contraceptives; Z88.6 Allergy status to analgesic agent; Z91.018 Allergy to other foods; Z91.012 Allergy to eggs; Z91.011 Allergy to milk products
CPT/HCPCS: 36415; 80053; 82150; 83690; 85025; 81001; 81025; 74177; 99284; 96374; 96375 ×4; 96361 ×3; J2270; J2405; J1885; J1170; C9113; Q9967

== ENCOUNTER → 2019-05-08 | Outpatient (CLI) | payer OTHER ==
[2019-05-08 19:00] LABS: Gliadin AB IgA, Deaminated NEGATIVE (NEGATIVE); Gliadin AB IgA, Unit 4.3 U/mL; Gliadin AB IgG, Deaminated NEGATIVE (NEGATIVE)
== END | disposition home or self-care (01) ==
LOC: LABWHC1 10:54
PROVIDERS: ATTEND Nurse Practitioner
DX: R19.4 Change in bowel habit (principal)
CPT/HCPCS: 36415; 83516

== ENCOUNTER → 2022-07-27 | Outpatient (CLI) | payer BC ==
[2022-07-27 14:55] LABS: T4, Free (Free Thyroxine) 1.21 ng/dL (0.800-1.800)
== END | disposition home or self-care (01) ==
LOC: LABWHC1 07:37
PROVIDERS: ATTEND Internal Medicine
DX: E06.3 Autoimmune thyroiditis (principal); E55.9 Vitamin D deficiency, unspecified
CPT/HCPCS: 36415; 82306; 84439; 84443

== ENCOUNTER 2024-05-02 16:05 | Emergency (ER) | payer BC ==
[2024-05-02 16:32] VITALS: TEMP 98.2
--- NOTE | 2024-05-02 16:32 | ED ---
Headache HPI - General Stated Complaint: headache Time Seen by Provider: 05/02/24 16:32 Source: patient, RN notes reviewed Mode of arrival: ambulatory Limitations: no limitations - History of Present Illness Initial Comments: 33-year-old female presenting to the ER with a chief complaint of a headache. Patient states for the past month she has got approximately 4 headaches. She has no history of migraines or headaches. She states the pain is usually relieved with Excedrin but the headache she has had for the past day has not responded. She reports the pain makes her feel nauseous. She denies any vomiting. She denies any double blurry vision, weakness, slurred speech, dizziness or lightheadedness. Denies chance of . No other complaints. - Related Data Home Medications Medication Instructions Recorded Confirmed Apri Control 1 tab PO HS 07/21/17 04/12/19 ALPRAZolam [Xanax] 0.5 mg PO HS 04/12/19 04/12/19 Levothyroxine Sodium [Synthroid] 75 mcg PO HS 04/12/19 04/12/19 buPROPion XL [Wellbutrin Xl] 300 mg PO HS 04/12/19 04/12/19 Previous Rx's Medication Instructions Recorded Amoxic-Pot Clav 875-125Mg 1 tab PO Q12HR #20 tablet 04/12/19 [Augmentin 875-125] Dicyclomine [Bentyl] 10 mg PO TID #9 capsule 04/12/19 Butalb/APAP/Caff 50-325-40Mg 1 tab PO Q4H PRN #10 tablet 05/02/24 [Fioricet 50-325-40] Allergies Allergy/AdvReac Type Severity Reaction Status Date / Time naproxen Allergy Rash/Hives Verified 04/12/19 12:15 yeast, dried Allergy THROAT Verified 04/12/19 12:15 SWELLING egg AdvReac allergy Verified 04/12/19 12:15 test-stomach upset gluten AdvReac loose Verified 04/12/19 12:15 stool,allergy test milk AdvReac Diarrhea Verified 04/12/19 12:15 potato AdvReac stomach Verified 04/12/19 12:15 upset,per allergy test tomato AdvReac per Verified 04/12/19 12:15 allergy test wheat AdvReac ALLERY TEST Verified 04/12/19 12:15 Review of Systems ROS Statement: Those systems with pertinent positive or pertinent negative responses have been documented in the HPI. ROS Other: All systems not noted in ROS Statement are negative. Past Medical History Past Medical History: GERD/Reflux, Thyroid Disorder Additional Past Medical History / Comment(s): THYROID NODULES,uti gallstone History of Any Multi-Drug Resistant Organisms: None Reported Past Surgical History: Cholecystectomy, Orthopedic Surgery Additional Past Surgical History / Comment(s): LEFT AND RIGHT WRIST SURGERY, WISDOM TEETH EXTRACTION Additional Past Anesthesia/Blood Transfusion Reaction / Comment(s): " STATES WOKE UP DURING SURGERY WITH WRIST SURGERY " Past Psychological History: Anxiety, Depression Past Alcohol Use History: Rare Past Drug Use History: Marijuana - Past Family History Mother Family Medical History: Cancer Additional Family Medical History / Comment(s): lymphoma Father Family Medical History: Hypertension General Exam - General Exam Comments Initial Comments: Visual Physical Exam Vital signs reviewed General: Well-appearing, nontoxic, no acute distress. Head: Normocephalic, atraumatic Eyes: PERRLA, EOMI ENT: Airway patent Chest: Nonlabored breathing Skin: No visual rash, normal skin tone Neuro: Alert and oriented 3 Musculoskeletal: No gross abnormalities Limitations: no limitations General appearance: alert, in no apparent distress Head exam: Present: atraumatic, normocephalic, normal inspection, other (No temporal artery tenderness) Eye exam: Present: normal appearance, PERRL, EOMI. Absent: scleral icterus, conjunctival injection, periorbital swelling Pupils: Present: normal accommodation ENT exam: Present: normal exam, normal oropharynx, mucous membranes moist, TM's normal bilaterally Neck exam: Present: normal inspection. Absent: tenderness, meningismus, lymphadenopathy Respiratory exam: Present: normal lung sounds bilaterally. Absent: respiratory distress, wheezes, rales, rhonchi, stridor Cardiovascular Exam: Present: regular rate, normal rhythm, normal heart sounds. Absent: systolic murmur, diastolic murmur, rubs, gallop, clicks Neurological exam: Present: alert, oriented X3, CN II-XII intact Skin exam: Present: warm, dry, intact, normal color. Absent: rash Course Vital Signs 05/02/24 05/02/24 05/02/24 16:27 19:59 21:14 Temperature 98.2 F Pulse Rate 89 70 73 Respiratory 22 18 18 Rate Blood Pressure 150/109 136/87 127/78 O2 Sat by Pulse 99 99 99 Oximetry Medical Decision Making - Medical Decision Making I performed the quick note portion of this chart. Electronically signed by Robert Washington PA-C Was pt. sent in by a medical professional or institution (, [facility], [employer], urgent care, hospital, or jail...) When possible be specific @ -No Did you speak to anyone other than the patient for history (EMS, parent, family, police, friend...)? What history was obtained from this source @ -No Did you review nursing and triage notes (agree or disagree)? Why? @ -I reviewed and agree with nursing and triage notes Were old charts reviewed (outside hosp., previous admission, EMS record, old EKG, old radiological studies, urgent care reports/EKG's, jail records)? Report findings @ -No old charts were reviewed Differential Diagnosis (chest pain, altered mental status, abdominal pain women, abdominal pain men, vaginal bleeding, weakness, fever, dyspnea, syncope, headache, dizziness, GI bleed, back pain, seizure, CVA, palpatations, mental health, musculoskeletal)? @ -Differential Headache:Migraine, tension, cluster, carbon monoxide, central venous thrombosis, pension karma temporal arteritis, acute closure glaucoma, intercranial hemorrhage, mastoiditis, sinusitis, head injury, this is not meant to be an all-inclusive list. EKG interpreted by me (3pts min.). @ -None done X-rays interpreted by me (1pt min.). @ -None done CT interpreted by me (1pt min.). @ -CT brain negative for acute process. U/S interpreted by me (1pt. min.). @ -None done What testing was considered but not performed or refused? (CT, X-rays, U/S, labs)? Why? @ -None What meds were considered but not given or refused? Why? @ -None Did you discuss the management of the patient with other professionals (professionals i.e. [facility], [employer], lab, RT, psych nurse, medical social worker, recreational therapy technician, teacher, cra officer, watch case polisher)? Give summary @ -No Was smoking cessation discussed for >3mins.? @ -No Was critical care preformed (if so, how long)? @ -No Were there social determinants of health that impacted care today? How? (Homelessness, low income, unemployed, alcoholism, drug addiction, transportation, low edu. Level, literacy, decrease access to med. care, halfway, rehab)? @ -No Was there de-escalation of care discussed even if they declined (Discuss DNR or withdrawal of care, Hospice)? DNR status @ -No What co-morbidities impacted this encounter? (DM, HTN, Smoking, COPD, CAD, Cancer, CVA, ARF, Chemo, Hep., AIDS, mental health diagnosis, sleep apnea, morbid obesity)? @ -None Was patient admitted / discharged? Hospital course, mention meds given and route, prescriptions, significant lab abnormalities, going to OR and other pertinent info. @ -Discharged. 33-year-old female presented to the ER with a chief complaint of a headache. Patient originally seen as a quick note. Upon rooming, history and physical exam completed. Vitals within normal limits. Exam benign. No temporal artery tenderness. No acute neurological findings. Laboratory studies unremarkable with mild signs of dehydration. Viral swabs negative. As patient has been having increasing pain of headaches and more frequent headaches, CT will be performed. Patient is agreeable to this. CT brain negative. Patient received IV fluids, Decadron, Benadryl, Zofran and p.o. Tylenol for symptom control in the ER. Upon reevaluation, patient resting comfortably in exam room no signs of acute distress. Patient reporting improvement of headache and is eager for discharge. Results discussed with patient, all questions answered. Patient reports she has a follow-up with her primary care physician on Tuesday for further evaluation of these headaches. Fioricet prescribed. I advised her to attend that appointment. Strict return parameters discussed. Patient discharged in stable condition with follow-up to PCP. Patient verbally expressed understanding and agreement with care plan. Case discussed with ED attending, Dr. Downey. Undiagnosed new problem with uncertain prognosis? @ -No Drug Therapy requiring intensive monitoring for toxicity (Heparin, Nitro, Insulin, Cardizem)? @ -No Were any procedures done? @ -No Diagnosis/symptom? @ -Headache Acute, or Chronic, or Acute on Chronic? @ -Acute Uncomplicated (without systemic symptoms) or Complicated (systemic symptoms)? @ -Uncomplicated Side effects of treatment? @ -No Exacerbation, Progression, or Severe Exacerbation? @ -No Poses a threat to life or bodily function? How? (Chest pain, USA, PR, pneumonia, PE, COPD, DKA, ARF, appy, cholecystitis, CVA, Diverticulitis, Homicidal, Suicidal, threat to staff... and all critical care pts) @ -No - Lab Data Result diagrams: 05/02/24 18:21 05/02/24 18:21 Lab Results 05/02/24 05/02/24 05/02/24 Range/Units 18:18 18:21 18:21 WBC 6.8 (3.8-10.6) k/uL RBC 4.70 (3.80-5.40) m/uL Hgb 14.5 (11.4-16.0) gm/dL Hct 42.8 (34.0-46.0) % MCV 91.1 (80.0-100.0) fL MCH 30.8 (25.0-35.0) pg MCHC 33.8 (31.0-37.0) g/dL RDW 12.2 (11.5-15.5) % Plt Count 386 (150-450) k/uL MPV 7.0 Neutrophils % 70 % Lymphocytes % 21 % Monocytes % 5 % Eosinophils % 1 % Basophils % 0 % Neutrophils # 4.8 (1.3-7.7) k/uL Lymphocytes # 1.4 (1.0-4.8) k/uL Monocytes # 0.4 (0-1.0) k/uL Eosinophils # 0.1 (0-0.7) k/uL Basophils # 0.0 (0-0.2) k/uL Sodium 139 (137-145) mmol/L Potassium 4.4 (3.5-5.1) mmol/L Chloride 110 H (98-107) mmol/L Carbon Dioxide 20 L (22-30) mmol/L Anion Gap 9 mmol/L BUN 4 L (7-17) mg/dL Creatinine 0.58 (0.52-1.04) mg/dL Est GFR (CKD-EPI)AfAm >90 (>60 ml/min/1.73 sqM) Est GFR (CKD-EPI)NonAf >90 (>60 ml/min/1.73 sqM) Glucose 99 (74-99) mg/dL Calcium 10.0 (8.4-10.2) mg/dL Total Bilirubin 0.9 (0.2-1.3) mg/dL AST 27 (14-36) U/L ALT 19 (4-34) U/L Alkaline Phosphatase 55 (38-126) U/L Total Protein 7.9 (6.3-8.2) g/dL Albumin 4.8 (3.5-5.0) g/dL Influenza Type A (PCR) Not Detected (Not Detectd) Influenza Type B (PCR) Not Detected (Not Detectd) RSV (PCR) Not Detected (Not Detectd) SARS-CoV-2 (PCR) Not Detected (Not Detectd) - Radiology Data Radiology results: report reviewed, image reviewed Disposition Clinical Impression: Headache Disposition: HOME SELF-CARE Condition: Stable Instructions (If sedation given, give patient instructions): Acute Headache (ED) Additional Instructions: Follow-up with PCP. You may take [id number] ibuprofen, Tylenol and Benadryl for pain control outpatient. Return to ER for any new or worsening concerns. Prescriptions: Butalb/APAP/Caff 50-325-40Mg [Fioricet 50-325-40] 1 tab PO Q4H PRN #10 tablet PRN Reason: Headache Is patient prescribed a controlled substance at d/c from ED?: No Referrals: Stanislaw Vazquez MD [Primary Care Provider] - 1-2 days Time of Disposition: 21:39
[2024-05-02 18:30] LABS: Basophils % (A) 0 %; Eosinophils # (A) 0.1 k/uL (0-0.7); Eosinophils % (A) 1 %; HCT 42.8 % (34.0-46.0); HGB 14.5 gm/dL (11.4-16.0); Lymphocytes # (A) 1.4 k/uL (1.0-4.8); Lymphocytes % (A) 21 %; MCH 30.8 pg (25.0-35.0); MCHC 33.8 g/dL (31.0-37.0); MCV 91.1 fL (80.0-100.0); Monocytes # (A) 0.4 k/uL (0-1.0); Monocytes % (A) 5 %; Neutrophils # (A) 4.8 k/uL (1.3-7.7); Neutrophils % (A) 70 %; Platelet Count 386 k/uL (150-450); RDW 12.2 % (11.5-15.5); WBC 6.8 k/uL (3.8-10.6)
[2024-05-02 18:41] LABS: ALT 19 U/L (4-34); African American GFR (CKD) >90 (>60 ml/min/1.73 sqM); Albumin 4.8 g/dL (3.5-5.0); Anion Gap 9 mmol/L; Blood Urea Nitrogen 4 mg/dL (7-17); Carbon Dioxide 20 mmol/L (22-30); Chloride 110 mmol/L (98-107); Glucose 99 mg/dL (74-99); Non-African American GFR(CKD) >90 (>60 ml/min/1.73 sqM); Sodium 139 mmol/L (137-145); Total Bilirubin 0.9 mg/dL (0.2-1.3); Total Protein 7.9 g/dL (6.3-8.2)
[2024-05-02 18:55] LABS: AST 27 U/L (14-36); Alkaline Phosphatase 55 U/L (38-126); Potassium 4.4 mmol/L (3.5-5.1)
[2024-05-02] MEDS: diphenhydrAMINE 50 MG/ML 1 ML VIAL IVP STA (19:34)
[2024-05-02] MEDS: DEXAMETHASONE SOD PHOSPHATE 10 MG/ML 1 ML VIAL IVP STA (19:35)
[2024-05-02] MEDS: ACETAMINOPHEN TAB 325 MG TAB PO STA (19:35)
[2024-05-02] MEDS: ONDANSETRON 4 MG/2 ML VIAL IVP STA (19:35)
[2024-05-02] MEDS: SODIUM CHLORIDE 0.9% 1,000 ML IV STA (19:49)
[2024-05-02 20:01] VITALS: RESP 18
[2024-05-02 21:15] VITALS: BP 127/78; PULSE 73
--- NOTE | 2024-05-02 21:27 | CT ---
EXAMINATION TYPE: CT brain wo con CT DLP: 1125 mGycm, Automated exposure control for dose reduction was used. DATE OF EXAM: 05/02/2024 8:47 PM COMPARISON: 12/28/2017. CLINICAL INDICATION: Female, 33 years old with history of headache, [place]. TECHNIQUE: Brain: Axial CT images of the brain were obtained with coronal and sagittal reformats created and rev iewed. Contrast used: None. Oral contrast used: None. FINDINGS: Brain: Extra-axial spaces: No abnormal extra-axial fluid collections. Ventricular system: Within normal limits Cerebral parenchyma: No acute intraparenchymal hemorrhage or mass effect. The mcmahan-white junction is well differentiated. Cerebellum: Unremarkable. Mass effect: No evidence of midline shift. Intracranial vasculature: unremarkable Soft tissues: Normal. Calvarium/osseous structures: No depressed skull fracture. Paranasal sinuses and mastoid air cells: Mild scattered paranasal sinus disease. Visualized orbits: Orbital contents are intact. IMPRESSION: No acute intracranial process. [facility], , 05/02/2024 9:24 PM
== END 2024-05-02 21:58 | disposition home or self-care (01) ==
LOC: EC 16:05
DX: R51.9 Headache, unspecified (principal); Z91.012 Allergy to eggs; Z91.011 Allergy to milk products; Z91.018 Allergy to other foods; Z88.8 Allergy status to other drugs, medicaments and biological substances
CPT/HCPCS: 36415; 80053; 85025; 87636; 70450; 99284; 96374; 96375 ×2; 96361; J1200; J1100; J2405

== ENCOUNTER → 2024-05-18 | Outpatient (CLI) | payer BC ==
--- NOTE | 2024-05-18 08:59 | CT ---
EXAMINATION TYPE: CT cervical spine wo con DATE OF EXAM: 05/18/2024 7:55 AM COMPARISON: None. CLINICAL INDICATION: Female, 33 years old with history of M54.81 OCCIPITAL NEURALGIA, severe headache s x2 months, TECHNIQUE: Contiguous axial scanning of the cervical spine without IV contrast. Coronal and sagittal reconstructions performed. CT DLP: 670.7 mGycm, Automated exposure control for dose reduction was used. FINDINGS: No craniocervical junction abnormalities, predental space, or prevertebral soft tissue swelling. Artifact from the patient's shoulders obscuring the spinal canal from C4 to C5 and below. No evident canal compromise allowing for this limitation. No acute fracture seen of the cervical spine. Alignment and disc interspaces are relatively preserved as well. Some prominent left paratracheal lymph nodes at the thoracic inlet level measuring up to 1.8 cm. Ther e is also asymmetrically larger left lobe of the thyroid gland. Dedicated thyroid ultrasound to critical access hospital er assess. No significant neural foraminal stenosis seen. Tiny 3 mm subpleural pulmonary nodule posterior left apex of questionable clinical significance. IMPRESSION: 1. ASYMMETRICALLY LARGER LEFT LOBE OF THE THYROID GLAND. SOME ADJACENT LEFT PARATRACHEAL NODES ARE IA OMINENT MEASURING UP TO 1.8 CM JUST BELOW THE THYROID GLAND. DEDICATED THYROID ULTRASOUND TO FURTHER EVALUATE. 2. NO ACUTE FRACTURE OR MALALIGNMENT OF THE CERVICAL SPINE. 3. ALLOWING FOR THE LIMITATIONS OF CT, NO EVIDENT CANAL COMPROMISE OR NEURAL FORAMINAL STENOSIS. [facility], , 05/18/2024 8:56 AM
== END | disposition home or self-care (01) ==
LOC: RADCTMAIN 07:35
PROVIDERS: ATTEND Internal Medicine
DX: M54.81 Occipital neuralgia (principal); E07.89 Other specified disorders of thyroid
CPT/HCPCS: 72125